=== PATIENT | female | born 1945 | race African-American/Black ===

== ENCOUNTER 2018-01-19 19:55 | Inpatient (IN) | payer BC, MEDICARE ==
[~2018-01-19] VITALS: Ht 157.5 cm; Wt 65.3 kg
[2018-01-19 20:40] LABS: BASOPHILS % (AUTO) 0 % (0-1); EOSINOPHILS # (AUTO) 0.16 x10^3/uL (0-0.4); EOSINOPHILS % (AUTO) 2 % (1-7); LYMPHOCYTES # (AUTO) 2.91 x10^3/uL (1-3.4); LYMPHOCYTES % (AUTO) 31 % (22-44); MD NO; MEAN CORPUSCULAR HEMOGLOBIN 27.8 pg (27.0-34.8); MEAN CORPUSCULAR HGB CONC 33.5 g/dL (32.4-35.8); MEAN CORPUSCULAR VOLUME 82.9 fL (80-100); MEAN PLATELET VOLUME 8.5 fL (7.4-10.4); MONOCYTES # (AUTO) 0.51 x10^3/uL (0.2-0.8); MONOCYTES % (AUTO) 6 % (2-9); NEUTROPHILS # (AUTO) 5.68 x10^3/uL (1.8-6.8); NEUTROPHILS % (AUTO) 61 % (42-75); PLATELET COUNT 282 x10^3/uL (130-400); RED BLOOD COUNT 4.77 x10^6/uL (3.82-5.3); RED CELL DISTRIBUTION WIDTH 14.2 % (9.6-15.2)
[2018-01-19 20:53] LABS: ALBUMIN 3.9 g/dL (3.4-5.0); ANION GAP 10 mmol/L (5-15); CALCIUM 8.6 mg/dL (8.5-10.1); CHLORIDE 109 mmol/L (98-107); CREATININE 0.84 mg/dL (0.55-1.02)
[2018-01-19] MEDS ORDERED: BISACODYL 10 MG SUPP PR PRN (22:30)
[2018-01-19] MEDS ORDERED: ATORVASTATIN 40 MG TABLET PO SCH (22:30)
[2018-01-19] MEDS ORDERED: ONDANSETRON 4 MG TABLET PO PRN (22:30)
[2018-01-19] MEDS ORDERED: DOCUSATE 100 MG CAPSULE PO PRN (22:30)
[2018-01-19] MEDS ORDERED: ACETAMINOPHEN 325 MG TABLET PO PRN (22:30)
[2018-01-19] MEDS ORDERED: POLYETHYLENE GLYCOL 17 GM PACKET PO PRN (22:30)
[2018-01-19] MEDS ORDERED: ENALAPRILAT 1.25 MG/ML, 2ML IV PRN (22:30)
[2018-01-19] MEDS ORDERED: ASPIRIN 325 MG TABLET PO ONE (23:00)
[2018-01-19 23:42] VITALS: BP 166/73
[2018-01-20] MEDS: NICOTINE 21 MG/24 HR PATCH.TD24 TD SCH ×2 (00:03→21:21)
[2018-01-20] MEDS ORDERED: ASPIRIN 81 MG TABLET CHEW PO ONE (00:30)
[2018-01-20 01:20] VITALS: BP 150/80
[2018-01-20 04:59] LABS: LDL/HDL RATIO 1.9 (0.5-3.0)
[2018-01-20 07:17] VITALS: BP 145/78
[2018-01-20] MEDS: ASPIRIN 81 MG TABLET CHEW PO SCH (08:41)
[2018-01-20] MEDS ORDERED: ASPIRIN 81 MG TABLET CHEW PO/NG SCH (09:00)
[2018-01-20 13:01] VITALS: BP 151/84
[2018-01-20] MEDS ORDERED: OMNIPAQUE 350 MG/ML, 100ML BOTTLE ONE (15:11)
[2018-01-20 20:13] VITALS: BP 162/81
[2018-01-20] MEDS ORDERED: ATORVASTATIN 40 MG TABLET PO SCH (21:00)
[2018-01-21 03:00] VITALS: BP 169/84
[2018-01-21 06:59] VITALS: BP 166/89
[2018-01-21] MEDS: ASPIRIN 81 MG TABLET CHEW PO SCH (09:00)
[2018-01-21] MEDS ORDERED: ATOR40TA78 PO (10:41)
[2018-01-21] MEDS ORDERED: ASPI-515 PO (10:41)
[2018-01-21] MEDS ORDERED: NICO-487 TD (10:41)
== END 2018-01-21 12:22 | disposition home or self-care (01) | DRG 66 ==
LOC: ED 21:25 → EDIP 21:30 → 4WST 22:10
PROVIDERS: ADMIT Hospitalist; ATTEND Hospitalist
DX: I63.9 Cerebral infarction, unspecified (principal); R47.81 Slurred speech; R29.810 Facial weakness; I65.22 Occlusion and stenosis of left carotid artery; I10 Essential (primary) hypertension; Z71.6 Tobacco abuse counseling; Z82.49 Family history of ischemic heart disease and other diseases of the circulatory system; Z90.710 Acquired absence of both cervix and uterus; Z80.0 Family history of malignant neoplasm of digestive organs; F17.210 Nicotine dependence, cigarettes, uncomplicated; Z60.2 Problems related to living alone; Z72.89 Other problems related to lifestyle; Z79.82 Long term (current) use of aspirin; Z79.899 Other long term (current) drug therapy; R29.702 NIHSS score 2; G83.24 Monoplegia of upper limb affecting left nondominant side
CPT/HCPCS: 36415; 70450; 70498; 70551; 80048; 80061; 82040; 85025; 93005; 93306; 93880; 99285; G0378; Q9967